=== PATIENT | male | born 1970 | race African-American/Black ===

== ENCOUNTER 2017-10-06 11:22 | Observation (INO) | payer OTHER, MEDICAID ==
[~2017-10-06] VITALS: Ht 175.3 cm; Wt 102.1 kg
[2017-10-06] MEDS ORDERED: SODIUM CHLORIDE 0.9% 1,000 ML IV ONE (12:19)
[2017-10-06] MEDS ORDERED: ONDANSETRON HCL 4MG/2ML VIAL IV STA (12:19)
[2017-10-06] MEDS ORDERED: MORPHINE SULFATE 4 MG/ML CPJ (NOT FOR IM USE) IV STA (12:19)
[2017-10-06 12:40] LABS: BASOPHILS % 0.7 % (0.0-2.0); EOSINOPHILS % 1.3 % (0.0-5.0); HEMATOCRIT. 45.2 % (42.0-52.0); MEAN CORPUSCULAR HEMOGLOBIN 29.2 pg (28.0-32.0); MEAN CORPUSCULAR VOLUME 88.1 fL (80.0-94.0); MEAN PLATELET VOLUME 6.3 fl (7.4-10.4); MONOCYTES % 5.9 % (2.0-8.0); NEUTROPHILS % 66.1 % (40.0-76.0); PLATELET 344 x1000/uL (130-400); RED BLOOD CELL COUNT 5.13 mill/uL (4.7-6.1); RED CELL DISTRIBUTION WIDTH 14.6 % (11.6-14.6)
[2017-10-06 12:45] LABS: CHLORIDE 101 mEq/L (98-107); INR 1.1; PARTIAL THROMBOPLASTIN TIME 26.4 sec (23.4-31.0); PROTHROMBIN TIME 11.3 sec (9.4-11.6)
[2017-10-06] MEDS ORDERED: HYDRALAZINE 20MG/ML VIAL IV ONE (12:45)
[2017-10-06] MEDS ORDERED: LORAZEPAM 2MG/ML CPJ IV ONE (12:45)
[2017-10-06] MEDS ORDERED: PHENYLEPHRINE 100MCG/ML 10ML VIAL (CATH LAB) IV PRN (16:30)
[2017-10-06] MEDS ORDERED: LIDOCAINE HCL 2%/EPINEPHRINE/PF 10 ML VIAL INFIL ONE (16:30)
[2017-10-06] MEDS ORDERED: ONDANSETRON HCL 4MG/2ML VIAL IV PRN (20:30)
[2017-10-06] MEDS ORDERED: CLONIDINE 0.1MG TABLET PO PRN (20:30)
[2017-10-06] MEDS ORDERED: ACETAMINOPHEN 325MG TABLET PO PRN (20:30)
[2017-10-06] MEDS ORDERED: MAGNESIUM HYDROXIDE 400MG/5ML 30ML UDC PO PRN (20:30)
[2017-10-06] MEDS ORDERED: DIPHENHYDRAMINE 50MG/ML VIAL IV PRN (20:30)
[2017-10-06] MEDS ORDERED: HYDROCODONE/ACETAMINOPHEN 5/325MG TABLET PO PRN (20:30)
[2017-10-06] MEDS ORDERED: DEXTROSE 50% WATER 50ML SYRINGE IV PRN (20:30)
[2017-10-06] MEDS ORDERED: MAGNESIUM/ALUMINUM HYDROXIDE/SIMETHICONE 30ML UDC PO PRN (20:30)
[2017-10-06] MEDS ORDERED: LORAZEPAM 2MG/ML CPJ IV PRN (20:30)
[2017-10-06] MEDS ORDERED: INSULIN LISPRO 100 UNITS/ML SUBCUT SCH (21:00)
[2017-10-06 21:14] LABS: T4 FREE 0.6 ng/dL (0.76-1.46)
[2017-10-07 01:11] VITALS: BP 166/100
[2017-10-07 04:00] VITALS: BP 127/80
[2017-10-07] MEDS ORDERED: SODIUM CHLORIDE 0.9% INJ 3ML FLUSH IVF SCH (06:00)
[2017-10-07] MEDS ORDERED: BLOOD SUGAR DIAGNOSTIC STRIP TEST SCH (07:10)
[2017-10-07 08:00] VITALS: BP 134/90
[2017-10-07] MEDS ORDERED: PIOGLITAZONE 15MG TABLET PO SCH (09:00)
[2017-10-07] MEDS ORDERED: METHIMAZOLE 5MG TABLET PO SCH (09:00)
[2017-10-07] MEDS ORDERED: TOPIRAMATE 100MG TABLET PO SCH (09:00)
[2017-10-07] MEDS ORDERED: PHENOBARBITAL 60MG TABLET PO SCH (09:00)
[2017-10-07] MEDS ORDERED: LISINOPRIL 10MG TABLET PO SCH (09:00)
[2017-10-07] MEDS ORDERED: FLUOXETINE HCL 20MG CAPSULE PO SCH (09:00)
== END 2017-10-07 09:23 | disposition left against medical advice (07) ==
LOC: ER 11:58 → INTOOBSV 12:40 → 8WST 12:40 → CANRESERV 19:49 → ENRESERV 19:49 → CANRESERV 22:15 → ENRESERV 22:15 → EDBEDREQSVC 22:41 → EDBEDREQ 22:41 → EDBEDREQTM 22:41 → EDBEDREQ 22:42 → 8WST 10-07 01:55
PROVIDERS: ADMIT Internal Medicine; ATTEND Internal Medicine
DX: N48.39 Other priapism (principal); I10 Essential (primary) hypertension; E11.9 Type 2 diabetes mellitus without complications; H54.7 Unspecified visual loss; G40.909 Epilepsy, unspecified, not intractable, without status epilepticus; F41.9 Anxiety disorder, unspecified; M19.90 Unspecified osteoarthritis, unspecified site; E78.00 Pure hypercholesterolemia, unspecified; F17.210 Nicotine dependence, cigarettes, uncomplicated; Z82.49 Family history of ischemic heart disease and other diseases of the circulatory system; Z83.3 Family history of diabetes mellitus; Z79.01 Long term (current) use of anticoagulants; Z91.14 Patient's other noncompliance with medication regimen
CPT/HCPCS: 36415; 71045; 80048; 82962; 83036; 84439; 84443; 85025; 85610; 85730; 86850; 86900; 86901; 93005; 96361; 96374; 96375; 99285; G0378; J0360; J2060; J2270; J2405; J3490; J7030